=== PATIENT | male | born 1955 | race Caucasian/White ===

== ENCOUNTER 2016-12-25 11:57 | Emergency (ER) | payer MEDICAID ==
[~2016-12-25] VITALS: Wt 80.0 kg
[2016-12-25] MEDS ORDERED: HYDROCODONE/APAP (5/325) TAB PO ONE (14:30)
[2016-12-25] MEDS ORDERED: CEFTRIAXONE 1 GM INJ IM ONE (14:30)
[2016-12-25] MEDS ORDERED: LIDOCAINE 1% (MDV) 20 ML INJ SC ONE (14:30)
[2016-12-25] MEDS ORDERED: BACTDS PO (15:01)
[2016-12-25] MEDS ORDERED: CEPH-443 PO (15:01)
[2016-12-25 15:10] VITALS: TEMP 98.5
--- NOTE | 2016-12-30 13:12 | ERD ---
ER Documentation Chief Complaint Date/Time DATE: 12/30/16 TIME: 13:09 Chief Complaint MULTIPLE ABSCESSES PER PT HPI This patient is a 61-year-old male with no significant medical history presenting to the emergency department for abscess on his left buttocks ongoing for the past 2 weeks. The patient has never had an I&D in the past. The patient tried to squeeze the area but there was no discharge present. The patient is not taking any antibiotics or other medication. The patient denies any drug use, tobacco use, alcohol use, fevers, chills, or other symptoms at this time. ROS All systems reviewed and are negative except as per history of present illness. Medications Home Meds Active Scripts Cephalexin* (Keflex*) 500 Mg Capsule, 500 MG PO TID for 7 Days, #21 CAP Prov:KIKO EDDY PA-C 12/25/16 Sulfamethoxazole-Trimethoprim* (Bactrim* DS) 800-160 Mg Tab, 1 TAB PO BID for 7 Days, #14 TAB Prov:KIKO EDDY PA-C 12/25/16 Allergies Allergies: Coded Allergies: No Known Allergy (Unverified , 12/25/16) PMhx/Soc Medical and Surgical Hx: pt denies Medical Hx, pt denies Surgical Hx History of Surgery: No Anesthesia Reaction: No Hx Neurological Disorder: No Hx Respiratory Disorders: No Hx Cardiac Disorders: No Hx Miscellaneous Medical Probl: No Hx Alcohol Use: No Hx Substance Use: No Hx Tobacco Use: No Smoking Status: Never smoker FmHx Noncontributory for chief complaint Physical Exam Vitals Temperature: 100.7F Pulse: 102 Blood pressure: 179/69 Respirations: 18 O2 saturation 99% on room air. Physical Exam INITIAL VITAL SIGNS: Reviewed by me. GENERAL: Alert and interactive. No acute distress. HEAD: Head is normocephalic and atraumatic. EYES: EOMI. No scleral icterus. No conjunctival injection. ENT: Moist mucosa. NECK: Supple. Full range of motion. RESPIRATORY: Normal respiratory effort. Clear breath sounds bilaterally. No wheezing, rales, or rhonchi. CV: Regular rate and rhythm. Normal S1 S2. No S3 or S4. No murmurs. ABDOMEN: Soft, non-distended, non-tender. No guarding. No rebound. No masses. EXTREMITIES: No deformity. SKIN: There is a fluctuant 5 cm x 5 cm abscess to the left buttock with purulent discharge present. The area is warm and tender. NEUROLOGIC: Alert and oriented x 4. Speech is normal. Moves all extremities equally. No motor or sensory deficits noted. Results 24 hrs Current Medications Medications (Trade) Dose Ordered Sig/Antonia Route PRN Reason Start Time Stop Time Status Last Admin Dose Admin Lidocaine (Xylocaine 1% (Mdv) 20 ml) 20 ml ONCE ONCE SC 12/25/16 14:30 12/25/16 14:31 DC 12/25/16 14:21 Acetaminophen/ Hydrocodone Bitart (Costilla (5/325)) 1 tab ONCE ONCE PO 12/25/16 14:30 12/25/16 14:31 DC 12/25/16 14:21 Ceftriaxone Sodium (Rocephin) 1 gm ONCE ONCE IM 12/25/16 14:30 12/25/16 14:31 DC 12/25/16 14:21 Procedures/MDM 61-year-old male presents secondary to complaints of abscess to the left buttock region. Abscess Incision and Drainage with irrigation by me: Location: Left buttock Anesthesia: [Local 1% Lidocaine] Technique: [Irrigated. Disrupted loculations w/ instrumentation ] Packing: Approximately 32 inches Complications: [Neurovascularly intact post procedure] 48 hour wound check. Scar minimization instructions given. Patient's skin symptoms have stabilized while they have been evaluated in the department and are appropriate for outpatient care and work up. Exam and w/u not consistent w/ sepsis, deep space infection, or foreign body. Departure Diagnosis: Primary Impression: Abscess Additional Impression: Cellulitis and abscess of buttock Condition: Fair Patient Instructions: Abscess, Incision And Drainage Ref[facility] Usted se walker hecho un examen mdico de control que le indica que no est en sobia condicin que requiera tratamiento urgente en el Departamento de Emergencia. Un estudio ms profundo y el tratamiento de alfaro condicin pueden esperar sin ningn riesgo hasta que usted sea atendida/o en el consultorio de alfaro mdico o sobia cl carl. Es responsabilidad suya arreglar sobia mercy para el seguimiento del bright. MANEJO DE CONDICIONES NO URGENTES EN EL FUTURO 1) Si usted tiene un mdico de atencin primaria: Usted debera llamar a alfaro mdico de atencin primaria antes de venir al departamento de emergencia. Despus de las horas de consultorio, alfaro doctor o alfaro asociado/a est disponible por telfono. El mdico o enfermero de shirley en el servicio telefnico puede asesorarle por petey medio para atender el problema, o bright contrario se puede programar sobia mercy. 2) Si usted no tiene un mdico de atencin primaria: Llame al mdico o clnica de referencia que aparece abajo sariah las horas de consultorio para hacer sobia mercy para que le vean. CLINICAS: [place] [phone] [facility] [facility] [phone] [facility]. [facility] [[email or web address]] [phone] [address] [facility]. [facility] [phone] [facility]. [place] [id number] [phone] [facility]. [phone] [address] Additional Instructions: Return for wound recheck in 48 hours. Keep the area clean, dry and covered. Take all medication as directed. Follow-up with your primary care physician within 1 week. Return to the emergency department immediately should you have any new or worsening symptoms, uncontrolled fevers, or other unexplained symptoms. Take all medications as directed. KIKO EDDY PA-C Dec 30, 2016 13:11
== END 2016-12-25 15:10 | disposition home or self-care (01) ==
LOC: FTE 11:57
DX: L02.31 Cutaneous abscess of buttock (principal); L03.317 Cellulitis of buttock
CPT/HCPCS: 10060; 96372; J0696; Z7502; Z7610

== ENCOUNTER 2016-12-27 12:48 | Emergency (ER) | payer MEDICAID ==
[~2016-12-27] VITALS: Ht 167.6 cm; Wt 81.9 kg
[~2016-12-27 12:48] MED LIST: BACTDS PO; CEPH-443 PO
[2016-12-27 12:52] VITALS: Ht 167.6 cm; Wt 81.9 kg
--- NOTE | 2016-12-27 14:34 | EN ---
Date/Time of Note Date/Time of Note DATE: 12/27/16 TIME: 14:32 ER Progress Note 61-year-old male presents to the ER for wound check of an abscess that was drained on Tuesday. Patient states that he has been getting better and compliant with Keflex and Bactrim. Patient was evaluated RME and will be moved to ER to for dressing change. CAM NICK PA-C Dec 27, 2016 14:33
--- NOTE | 2016-12-27 17:26 | ERD ---
DATE OF SERVICE: 12/27/2016 HISTORY OF PRESENT ILLNESS: The patient is a 61-year-old male coming in for a wound check of an abs cess of his left buttock. Patient was seen here 2 days ago. He has been taking Bactrim and Keflex. He has no fevers. He states he still pain, but it has improved. He has had no severe drainage fr om the site and has had no abdominal pain, no chills, no pain with bowel movements or bloody stools. PAST MEDICAL HISTORY: Denies any other medical problems. ALLERGIES: TO MEDICATIONS DENIED. PAST SURGICAL HISTORY: Denies. Denies hospitalizations. REVIEW OF SYSTEMS: A 12-point review of systems was done. Refer to HPI for positives, all other sy stems negative. PHYSICAL EXAMINATION VITAL SIGNS: Temperature is 98.5, pulse 84, blood pressure is 150/75, respiratory 18, O2 saturation 98% on room air. Pain intensity is 0/10. GENERAL: The patient is well-appearing, well-nourished, no acute distress. CHEST: Clear to auscultation bilaterally. There are no rales, wheezes or rhonchi. HEART: Regular rate and rhythm. No murmurs, clicks, rubs or gallops. No S3 or S4. ABDOMEN: Soft, nontender and nondistended. Good bowel sounds. No rebound or guarding. No gross db tonitis. No gross organomegaly or masses. No De La Vega sign or McBurney point tenderness. SKIN: There is an I and D site noted on the left buttock mid cheek with mild surrounding erythema. There is no lymphatic streaking. Mild induration, but no fluctuance. Packing intact. EMERGENCY ROOM COURSE: Site was cleaned. Previous packing was removed and new packing was placed a nd pressure bandage was applied. DIAGNOSIS: Abscess, incision and drainage, wound check and repacking. MEDICAL DECISION MAKING: I have low suspicion for deep tracking infection. I have a low suspicion for worsening infection as there was no purulence extracted on exam and symptoms appear to be improv ing. The patient does need to return for wound check within 2 days. DISCHARGE: The patient is discharged stable. Patient is told to continue taking Bactrim and Kefle x as previously prescribed. The patient was told if symptoms progress or worsen to return to the ER . All other questions answered at time of discharge. Discharge summary given at the time of depart ure. Patient will return in 2 days for repacking and wound check. Dictated By: JYOTI HOPKINS for [facility] Conf#: [id number] DID#: [id number]
== END 2016-12-27 16:28 | disposition home or self-care (01) ==
LOC: E/R 12:48 → FTE 16:28
DX: Z48.01 Encounter for change or removal of surgical wound dressing (principal)
CPT/HCPCS: 99281

== ENCOUNTER 2016-12-29 14:33 | Emergency (ER) | payer MEDICAID ==
[~2016-12-29] VITALS: Ht 167.6 cm; Wt 80.5 kg
[2016-12-29 14:52] VITALS: Ht 167.6 cm; Wt 80.5 kg
--- NOTE | 2016-12-29 16:07 | ERD ---
ER Documentation Chief Complaint Date/Time DATE: 12/29/16 TIME: 16:07 Chief Complaint WOUND CHECK WAS SEEN HERE 2 DAYS AGO HPI This is a 61-year-old male who presents to the emergency room for evaluation of a incision and drainage on the left buttock. The patient was seen 2 days ago for the same where he had his wound repacked. The patient presents today for routine follow-up. Patient is taking Bactrim and Keflex. Has had no fevers, no drainage from the site, no worsening symptoms and came to the ER for further evaluation per ROS All systems reviewed and are negative except as per history of present illness. Medications Home Meds Active Scripts Cephalexin* (Keflex*) 500 Mg Capsule, 500 MG PO TID for 7 Days, #21 CAP Prov:KIKO EDDY PA-C 12/25/16 Sulfamethoxazole-Trimethoprim* (Bactrim* DS) 800-160 Mg Tab, 1 TAB PO BID for 7 Days, #14 TAB Prov:KIKO EDDY PA-C 12/25/16 Allergies Allergies: Coded Allergies: No Known Allergy (Unverified , 12/25/16) PMhx/Soc Medical and Surgical Hx: pt denies Medical Hx, pt denies Surgical Hx History of Surgery: No Anesthesia Reaction: No Hx Neurological Disorder: No Hx Respiratory Disorders: No Hx Cardiac Disorders: No Hx Miscellaneous Medical Probl: No Hx Alcohol Use: No Hx Substance Use: No Hx Tobacco Use: No Physical Exam Vitals Vital Signs Date Time Temp Pulse Resp B/P Pulse Ox O2 Delivery O2 Flow Rate FiO2 12/29/16 14:52 98.5 76 18 140/70 98 Physical Exam Const: [No acute distress Head: Atraumatic Eyes: Normal Conjunctiva ENT: Normal External Ears, Nose and Mouth. Neck: Full range of motion..~ No meningismus. Resp: Clear to auscultation bilaterally Cardio: Regular rate and rhythm, no murmurs Abd: Soft, non tender, non distended. Normal bowel sounds Skin: Packed wound and left gluteal, no purulent drainage, no petechiae or rashes Back: No midline or flank tenderness Ext: No cyanosis, or edema Neur: Awake and alert Psych: Normal Mood and Affect Procedures/MDM This 61-year-old male presents to the ER for evaluation of wound check. I evaluate this patient's wound, remove the packing. This patient has appropriate healing. This patient will not need his wound repacked at this time. I advised patient and patient's family to continue pressure dressings and continues antibiotics to follow-up in the emergency room or with his primary care in 1 week. Patient and patient's family verbalized understanding. Departure Diagnosis: Primary Impression: Encounter for wound re-check Condition: Stable NANCY ACOSTA DO Dec 29, 2016 16:07
== END 2016-12-29 16:30 | disposition home or self-care (01) ==
LOC: FTE 14:33
DX: Z48.01 Encounter for change or removal of surgical wound dressing (principal)
CPT/HCPCS: 99281